=== PATIENT | male | born 1970 | race Caucasian/White ===

== ENCOUNTER 2016-09-27 19:13 | Emergency (ER) | payer OTHER ==
[~2016-09-27] VITALS: Ht 182.9 cm; Wt 70.3 kg
[~2016-09-27 19:13] MED LIST: HYDR-4452 PO
[2016-09-27 19:26] VITALS: BP 104/73
[2016-09-27 19:52] LABS: APPEARANCE,URINE CLEAR (CLEAR); BILIRUBIN,URINE NEGATIVE (NEGATIVE); BLOOD, URINE TRACE-I (NEGATIVE); COLOR,URINE YELLOW (YELLOW); LEUKOCYTE ESTERASE ,URINE NEGATIVE (NEGATIVE); NITRITE, URINE NEGATIVE (NEGATIVE); PROTEIN,URINE NEGATIVE (NEGATIVE); UGLUCOSE NEGATIVE (NEGATIVE); UROBILINOGEN,URINE 0.2 EU/dL (0.2 - 1)
[2016-09-27 19:59] LABS: RBC,URINE 0-3 /HPF (0-5)
[2016-09-27 20:00] LABS: BACTERIA,URINE None Seen /HPF (None Seen); SQUAMOUS EPITHELIAL CELL,UR None Seen /LPF (0-3 (FEW)); WBC,URINE NONE SEEN /HPF (0-5)
--- NOTE | 2016-09-27 20:07 | NUR ---
PT TAKEN TO BED 7
--- NOTE | 2016-09-27 20:14 | NUR ---
46 Y/O M W/C/O PAIN WITH URINATION X 1 1/2 WK. DENIES ANY FEVER OR CHILLS. NO S/S OF DISTRESS NOTED AT THE MOMENT. ER REESE MADE AWARE.
--- NOTE | 2016-09-27 20:22 | NUR ---
Dr. Lara evaluating patient at bedside. 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
--- NOTE | 2016-09-27 20:26 | NUR ---
RECTAL exam performed by NEYMAR with ME at bedside for entire examination. Patient tolerated procedure WELL. Patient assisted to position of comfort after examination.
[2016-09-27] MEDS: PHENAZOPYRIDINE 100 MG TAB PO ONE (20:42)
[2016-09-27 21:00] VITALS: BP 117/82
--- NOTE | 2016-09-27 21:00 | NUR ---
Patient discharged with v/s stable. Written and verbal after care instructions given and explained. Patient alert, oriented and verbalized understanding of instructions. Ambulatory with to car. All questions addressed prior to discharge. ID band removed. Patient advised to follow up with PMD TOMORROW, OR RETURN TO ER IF CONDITION WORSENS. Rx of PHENAZOPYRIDINE AND BACTRIM given. Patient educated on indication of medication including possible reaction and side effects. Opportunity to ask questions provided and answered.
== END 2016-09-27 21:00 | disposition home or self-care (01) ==
LOC: MED 19:13
DX: N41.9 Inflammatory disease of prostate, unspecified (principal); R30.0 Dysuria; J45.909 Unspecified asthma, uncomplicated
CPT/HCPCS: 81001; 99283

== ENCOUNTER 2020-10-19 14:57 | Emergency (ER) | payer OTHER ==
[~2020-10-19] VITALS: Ht 185.4 cm; Wt 79.4 kg
[~2020-10-19 14:57] MED LIST changes: +AMOX-1000 PO; -HYDR-4452 PO; +HYDR-5191 PO
[2020-10-19 15:00] VITALS: BP 142/87
[2020-10-19] MEDS ORDERED: KETOROLAC 15 MG/ML VIAL IVP ONE (15:20)
[2020-10-19] MEDS ORDERED: CLINDAMYCIN 600 MG in DEXTROSE 5% 50 ML IV ONE (15:20)
--- NOTE | 2020-10-19 15:33 | NUR ---
LAB BEDSIDE WITH PT
[2020-10-19] MEDS ORDERED: CLINDAMYCIN 600 MG/4 ML VIAL ONE (15:35)
[2020-10-19 15:50] LABS: BASOPHILS # (AUTO) 0.1 K/uL (0.00-0.22); BASOPHILS % (AUTO) 1.2 % (0.0-2.0); EOSINOPHILS % (AUTO) 0.5 % (0.0-4.0); HEMATOCRIT 40.5 % (36-52); HEMOGLOBIN 14.1 g/dL (12.0-18.0); LYMPHOCYTES # (AUTO) 0.8 K/uL (2.0-11.5); LYMPHOCYTES % (AUTO) 12.4 % (20.5-51.1); MEAN CORPUSCULAR HEMOGLOBIN 36 pg (27-31); MEAN CORPUSCULAR HGB CONC 35 g/dL (33-37); MEAN CORPUSCULAR VOLUME 104.3 fL (80-94); NEUTROPHILS # (AUTO) 4.7 K/uL (1.8-7.7); NEUTROPHILS % (AUTO) 70.9 % (42.2-75.2); PLATELET COUNT (AUTO) 168 K/uL (140-450); RED BLOOD CELL COUNT(AUTO) 3.89 MIL/uL (4.20-6.10); RED CELL DISTRIBUTION WIDTH 13.8 % (11.6-13.7); WHITE BLOOD COUNT (AUTO) 6.6 K/uL (4.8-10.8)
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
[2020-10-19 16:06] LABS: ALBUMIN 3.6 g/dL (3.4-5.0); ANION GAP 13.8 (8-16); CARBON DIOXIDE 24.4 mmol/L (21-32); CREATININE 0.9 mg/dL (0.6-1.3); POTASSIUM 4.2 mmol/L (3.5-5.1); TOTAL BILIRUBIN 0.4 mg/dL (0.0-1.0)
[2020-10-19] MEDS ORDERED: SULF-59 PO ×2 (16:12→16:51)
[2020-10-19] MEDS ORDERED: NAPR-54 PO ×2 (16:12→16:51)
--- NOTE | 2020-10-19 16:34 | NUR ---
pt's wound was dressed with xeroform, non-adherent pad, and gauze wrap. ER PA notified.
[2020-10-19 16:57] VITALS: BP 142/87
--- NOTE | 2020-10-19 16:58 | NUR ---
Patient discharged with v/s stable. Written and verbal after care instructions given and explained. Patient alert, oriented and verbalized understanding of instructions. Ambulatory with steady gait. All questions addressed prior to discharge. ID band removed. Patient advised to follow up with PMD. Rx of NAPROXEN 1 TAB PO BID PRN FOR PAIN AND BACTRIM 1 TAB PO BID given. Patient educated on indication of medication including possible reaction and side effects. Opportunity to ask questions provided and answered.
== END 2020-10-19 16:58 | disposition home or self-care (01) ==
LOC: MED 14:57
DX: L03.116 Cellulitis of left lower limb (principal); J45.909 Unspecified asthma, uncomplicated; E11.9 Type 2 diabetes mellitus without complications; Z79.899 Other long term (current) drug therapy
CPT/HCPCS: 36415; 80053; 85025; 96365; 96375; 99284; J1885; J3490

== ENCOUNTER 2021-01-05 17:05 | Emergency (ER) | payer OTHER ==
[~2021-01-05] VITALS: Ht 167.6 cm; Wt 68.9 kg
[~2021-01-05 17:05] MED LIST changes: +NAPR-54 PO; +SULF-59 PO
[2021-01-05 17:13] VITALS: BP 169/107
[2021-01-05] MEDS ORDERED: DOPPLER MC ONE (22:49)
--- NOTE | 2021-01-05 23:03 | NUR ---
PT MOVED TO BED #8
[2021-01-05] MEDS ORDERED: ALBUTEROL SULFATE/IPRATROPIU 3 ML SOL IH ONE (23:15)
--- NOTE | 2021-01-05 23:15 | NUR ---
ASSUMED CARE OF PATIENT AT THIS TIME. REPORTS SOB AND NAUSEA, HAS WOUND TO LLE TO WHICH HE IS SEEIG A SPECIALIST. PREVIOUS HX OF ASTHMA AND STATES HE TOOK TOO MANY BREATHING TREATMENTS TODAY. LAST INHALER USE WAS AN HOUR AGO
[2021-01-05 23:34] LABS: BASOPHILS # (AUTO) 0.1 K/uL (0.00-0.22); BASOPHILS % (AUTO) 0.7 % (0.0-2.0); EOSINOPHILS % (AUTO) 0.1 % (0.0-4.0); HEMATOCRIT 41.5 % (36-52); HEMOGLOBIN 14.1 g/dL (12.0-18.0); LYMPHOCYTES # (AUTO) 1.4 K/uL (2.0-11.5); LYMPHOCYTES % (AUTO) 14.1 % (20.5-51.1); MEAN CORPUSCULAR HEMOGLOBIN 33 pg (27-31); MEAN CORPUSCULAR HGB CONC 34 g/dL (33-37); MEAN CORPUSCULAR VOLUME 96.5 fL (80-94); MONOCYTES # (AUTO) 1.5 K/uL (0.8-1.0); MONOCYTES % (AUTO) 15.4 % (1.7-9.3); NEUTROPHILS # (AUTO) 6.7 K/uL (1.8-7.7); NEUTROPHILS % (AUTO) 69.7 % (42.2-75.2); PLATELET COUNT (AUTO) 209 K/uL (140-450); RED CELL DISTRIBUTION WIDTH 14.7 % (11.6-13.7); WHITE BLOOD COUNT (AUTO) 9.6 K/uL (4.8-10.8)
[2021-01-05 23:42] LABS: ANION GAP 16.4 (8-16); CARBON DIOXIDE 23.6 mmol/L (21-32); CREATININE 1.1 mg/dL (0.6-1.3)
[2021-01-06] MEDS ORDERED: SULFAMETH/TRIMETH DS 800/160MG 1 TAB PO ONE (01:50)
[2021-01-06] MEDS ORDERED: ONDANSETRON 4 MG/2 ML VIAL IVP ONE (01:50)
[2021-01-06] MEDS ORDERED: SULF-58 PO (01:52)
--- NOTE | 2021-01-06 02:27 | NUR ---
PATIENT CLEARED FOR DISHARGE AT THIS TIME. TAXI VOUCHER GIVEN AND ADVISED APPROXIMATELY AN HOUR WAIT.
[2021-01-06 02:42] VITALS: BP 137/63
== END 2021-01-06 02:27 | disposition home or self-care (01) ==
LOC: MED 17:05
DX: L03.116 Cellulitis of left lower limb (principal); E87.1 Hypo-osmolality and hyponatremia; J45.909 Unspecified asthma, uncomplicated; E11.9 Type 2 diabetes mellitus without complications; Z86.69 Personal history of other diseases of the nervous system and sense organs; Z79.1 Long term (current) use of non-steroidal anti-inflammatories (NSAID); Z79.2 Long term (current) use of antibiotics; Z79.891 Long term (current) use of opiate analgesic
CPT/HCPCS: 36415; 73590; 73630; 80048; 85025; 85651; 86140; 94640; 96374; 99285; J2405; Q0092